=== PATIENT | female | born 1930 | race Caucasian/White ===

== ENCOUNTER 2016-12-14 09:45 | Inpatient (IN) | payer BC ==
[~2016-12-14] VITALS: Ht 162.6 cm; Wt 58.2 kg
[2016-12-14] VITALS (12 sets, daily range): BP systolic 86–149; BP diastolic 52–87; PULSE 46–79; TEMP 98.6–99
[~2016-12-14 09:45] MED LIST: ATROVENT I0.2 MG/1 M IH; CALCIUM 600600 M2 PO; IPRATROPIUM BROM3 M1 IH; LUTEIN6 MG PO; NICODERM C14 MG/PATC TOP; PERFOROMIS20 MCG/2 M IH; PULMICORT R1 MG/2 ML; PULMICORT90 MCG/Act IH; SYNTHROID0.075 MG/T PO; TART CHERRY PO
[2016-12-14 16:53] LABS: HEMATOCRIT 35.6 % (37.0-47.0); HEMOGLOBIN 11.3 g/dl (12.5-16.0); MEAN CELL VOLUME 99 fl (80.0-100.0); MEAN CORPUSCULAR HEMOGLOBIN 31 pg (27.0-31.0); MEAN CORPUSCULAR HGB CONC 32 g/dl (33.0-37.0); MEAN PLATELET VOLUME 9.9 fl (7.4-10.4); PLATELET COUNT 195 K/mm3 (130-400); REDCELL DISTRIBUTION WIDTH-CV 12.5 % (11.5-14.5); WHITE BLOOD COUNT 10.3 K/mm3 (4.8-10.8)
[2016-12-14 19:55] LABS: CALCIUM 9.5 mg/dL (8.4-10.2); CREATININE, serum 1.06 mg/dL (0.52-1.25); MAGNESIUM 2.1 mg/dL (1.6-2.3); PHOSPHOROUS 4.4 mg/dL (2.5-4.5); POTASSIUM 4.5 mmol/L (3.4-5.0)
[2016-12-15 03:30] VITALS: BP 101/57; PULSE 61; TEMP 98.1
[2016-12-15 04:22] LABS: PH 5 (5-8); SQUAMOUS EPITHELIAL 0-2 /hpf; URINE APPEARANCE Hazy; URINE BACTERIA None Seen /hpf; URINE BILIRUBIN Negative (NEGATIVE); URINE BLOOD Negative (NEGATIVE); URINE COLOR Yellow; URINE GLUCOSE Negative (NEGATIVE); URINE KETONE Negative (NEGATIVE); URINE RBC 0-2 /hpf; URINE UROBILINOGEN Negative (NEGATIVE)
[2016-12-15 07:28] VITALS: BP 136/57; PULSE 73; TEMP 98.3
[2016-12-15] MEDS ORDERED: OMNICEF 300MG300 MG PO (10:47)
== END 2016-12-15 11:38 | disposition home or self-care (01) | DRG 200 ==
LOC: COL.RAD 09:45 → MEDICAL 12:49
PROVIDERS: Internal Medicine
PROC: 0W9B00Z Drainage of Left Pleural Cavity with Drainage Device, Open Approach (ICD-10-PCS; principal; 2016-12-14)
PROC: 0BBJ3ZX Excision of Left Lower Lung Lobe, Percutaneous Approach, Diagnostic (ICD-10-PCS; 2016-12-14)
DX: J95.811 Postprocedural pneumothorax (principal); C34.32 Malignant neoplasm of lower lobe, left bronchus or lung; J44.9 Chronic obstructive pulmonary disease, unspecified; E03.9 Hypothyroidism, unspecified; R91.1 Solitary pulmonary nodule; F17.210 Nicotine dependence, cigarettes, uncomplicated
CPT/HCPCS: 99223-AI; 99239; J2270; J7030

== ENCOUNTER 2017-07-16 21:13 | Inpatient (IN) | payer MEDICARE, BC ==
[~2017-07-16] VITALS: Ht 162.6 cm; Wt 52.3 kg
[~2017-07-16 21:13] MED LIST changes: +OMNICEF 300MG300 MG PO; -PULMICORT R1 MG/2 ML; +PULMICORT R1 MG/2 ML IH
[2017-07-16 21:40] LABS: MEAN CELL VOLUME 101 fl (80.0-100.0); MEAN CORPUSCULAR HGB CONC 32 g/dl (33.0-37.0); PLATELET COUNT 233 K/mm3 (130-400); RED BLOOD COUNT 3.45 M/mm3 (4.10-5.30); WHITE BLOOD COUNT 7.6 K/mm3 (4.8-10.8)
[2017-07-16 21:42] LABS: ADD PATHOLOGY DIFF REVIEW NO; HEMATOCRIT 34.8 % (37.0-47.0); MEAN CORPUSCULAR HEMOGLOBIN 32 pg (27.0-31.0)
[2017-07-16 21:43] LABS: ARTERIAL BLD GAS O2 SATURATION 94.2 % (92-100); ARTERIAL BLD GAS TCO2 CT 35.3; ARTERIAL BLOOD GAS BASE EXCESS 5.5 (-2-2); ARTERIAL BLOOD GAS HCO3 33.3 meq/L (22-26); ARTERIAL BLOOD GAS PHT 7.33 C (7.35-7.45); ARTERIAL BLOOD GAS PO2 72.3 mmHg (80-100); ARTERIAL BLOOD GAS PO2T 72.3 (80-100); ARTERIAL BLOOD GAS pH 7.33 (7.35-7.45); OXYHEMOGLOBIN 92.7 %
[2017-07-16 21:44] LABS: ALLEN TEST YES; ALLENS TEST RESULT PASS; ATS? YES
[2017-07-16 21:47] LABS: ADJUSTED CALCIUM 9.2 mg/dL (8.4-10.2); ALANINE AMINOTRANSFERASE 30 U/L (9-52); ALKALINE PHOSPHATASE 65 U/L (50-136); ANION GAP 6 mmol/L (7-16); BILIRUBIN,TOTAL 0.3 mg/dL (0.0-1.0); BLOOD UREA NITROGEN 22 mg/dL (7-17); CALCIUM 9.2 mg/dL (8.4-10.2); CARBON DIOXIDE 36 mmol/L (22-30); CHLORIDE 102 mmol/L (98-107); CREATININE, serum 0.81 mg/dL (0.52-1.25); GLUCOSE 78 mg/dL (74-106); SODIUM 144 mmol/L (137-145); TOTAL PROTEIN 7.1 gm/dL (6.4-8.2)
[2017-07-16 21:49] LABS: BAND 2 % (0-10); BASOPHIL 1 % (0-2); EOSINOPHIL 2 % (0-4); METAMYELOCYTE 1 % (0-0); NEUTROPHILS 67 % (42.0-75.2); TOTAL CELLS COUNTED 100
[2017-07-16 21:50] LABS: ANISOCYTOSIS 1+; BURR CELLS 1+; HYPOCHROMIA 1+; POIKILOCYTOSIS 1+; ROULEAUX 1+
[2017-07-16 21:51] LABS: LYMPHOCYTE 21 % (20.0-51.0)
[2017-07-16 22:53] LABS: B-TYPE NATRIURETIC PEPTIDE 518 pg/mL (0-450); TROPONIN-I < 0.012 ng/mL (0.000-0.034)
[2017-07-17 00:23] VITALS: BP 145/61; PULSE 82; TEMP 98.7
[2017-07-17 04:37] VITALS: BP 116/64; PULSE 75; TEMP 98
[2017-07-17 07:05] LABS: CALCIUM 8.6 mg/dL (8.4-10.2); CREATININE, serum 0.8 mg/dL (0.52-1.25); POTASSIUM 4.9 mmol/L (3.4-5.0)
[2017-07-17 07:51] VITALS: BP 126/64; PULSE 74; TEMP 98
[2017-07-17 08:10] LABS: MEAN CELL VOLUME 102 fl (80.0-100.0); MEAN CORPUSCULAR HGB CONC 31 g/dl (33.0-37.0); MEAN PLATELET VOLUME 8.8 fl (7.4-10.4); PLATELET COUNT 220 K/mm3 (130-400); RED BLOOD COUNT 3.29 M/mm3 (4.10-5.30); WHITE BLOOD COUNT 6.8 K/mm3 (4.8-10.8)
[2017-07-17 08:21] LABS: ADD PATHOLOGY DIFF REVIEW NO; HEMATOCRIT 33.7 % (37.0-47.0); HEMOGLOBIN 10.5 g/dl (12.5-16.0); MEAN CORPUSCULAR HEMOGLOBIN 32 pg (27.0-31.0)
[2017-07-17 09:11] LABS: BAND 17 % (0-10); LYMPHOCYTE 10 % (20.0-51.0); NEUTROPHILS 72 % (42.0-75.2); PLATELET ESTIMATE NORMAL (NORMAL); TOTAL CELLS COUNTED 100
[2017-07-17 11:36] VITALS: BP 132/59; PULSE 82; TEMP 97.8
[2017-07-17 14:13] LABS: MUCOUS Present /lpf; PH 6 (5-8); SQUAMOUS EPITHELIAL 0-2 /hpf; URINE APPEARANCE Clear; URINE BACTERIA None Seen /hpf; URINE BILIRUBIN Negative (NEGATIVE); URINE BLOOD 1+ (NEGATIVE); URINE COLOR Yellow; URINE GLUCOSE Negative (NEGATIVE); URINE KETONE Negative (NEGATIVE); URINE LEUKOCYTE ESTERASE Negative (NEGATIVE); URINE PROTEIN(semi-quant) Negative (NEGATIVE); URINE RBC 0-2 /hpf; URINE UROBILINOGEN Negative (NEGATIVE); URINE WBC 0-2 /hpf
[2017-07-17 14:58] LABS: COLLECTION METHOD CLEAN CATCH
[2017-07-17 15:37] VITALS: BP 127/60; PULSE 72; TEMP 97.7
[2017-07-17 20:39] VITALS: BP 126/62; PULSE 78; TEMP 97
[2017-07-18] VITALS (7 sets, daily range): BP systolic 117–143; BP diastolic 62–67; PULSE 59–77; TEMP 97–98.6
[2017-07-18 05:05] LABS: ARTERIAL BLD GAS O2 SATURATION 96.6 % (92-100); ARTERIAL BLD GAS TCO2 CT 30.7; ARTERIAL BLOOD GAS BASE EXCESS 3.3 (-2-2); ARTERIAL BLOOD GAS HCO3 29.1 meq/L (22-26); ARTERIAL BLOOD GAS PO2 92.8 mmHg (80-100); ARTERIAL BLOOD GAS pH 7.38 (7.35-7.45); OXYHEMOGLOBIN 95.8 %
[2017-07-18 05:07] LABS: ALLEN TEST NO; ATS? YES
[2017-07-18 07:23] LABS: MEAN CELL VOLUME 100 fl (80.0-100.0); MEAN CORPUSCULAR HGB CONC 32 g/dl (33.0-37.0); PLATELET COUNT 246 K/mm3 (130-400); RED BLOOD COUNT 3.38 M/mm3 (4.10-5.30); WHITE BLOOD COUNT 8.9 K/mm3 (4.8-10.8)
[2017-07-18 07:26] LABS: HEMATOCRIT 33.9 % (37.0-47.0); HEMOGLOBIN 10.8 g/dl (12.5-16.0); MEAN CORPUSCULAR HEMOGLOBIN 32 pg (27.0-31.0)
[2017-07-18 07:27] LABS: ADD PATHOLOGY DIFF REVIEW NO
[2017-07-18 08:34] LABS: BAND 6 % (0-10); LYMPHOCYTE 14 % (20.0-51.0); NEUTROPHILS 74 % (42.0-75.2); PLATELET ESTIMATE NORMAL (NORMAL); TOTAL CELLS COUNTED 100
[2017-07-18 22:54] LABS: ARTERIAL BLD GAS O2 SATURATION 96.1 % (92-100); ARTERIAL BLD GAS TCO2 CT 32.2; ARTERIAL BLOOD GAS BASE EXCESS 4.9 (-2-2); ARTERIAL BLOOD GAS HCO3 30.6 meq/L (22-26); ARTERIAL BLOOD GAS PO2 87.7 mmHg (80-100); ARTERIAL BLOOD GAS PO2T 86.6 (80-100); OXYHEMOGLOBIN 95.4 %
[2017-07-18 22:55] LABS: ALLEN TEST YES; ALLENS TEST RESULT PASS; ATS? YES
[2017-07-19 03:30] VITALS: BP 115/69; PULSE 78; TEMP 97.5
[2017-07-19 07:39] VITALS: BP 127/52; PULSE 52; TEMP 97.8
[2017-07-19 12:39] VITALS: BP 120/70; PULSE 80; TEMP 98.4
[2017-07-19 17:53] VITALS: BP 147/71; PULSE 82; TEMP 97.5
[2017-07-19 20:17] VITALS: BP 149/77; PULSE 96; TEMP 99
[2017-07-20 00:48] VITALS: BP 130/83; PULSE 84; TEMP 97.5
[2017-07-20 03:21] VITALS: BP 120/61; PULSE 61; TEMP 98.5
[2017-07-20 07:35] LABS: MEAN CELL VOLUME 102 fl (80.0-100.0); MEAN CORPUSCULAR HGB CONC 31 g/dl (33.0-37.0); MEAN PLATELET VOLUME 9.2 fl (7.4-10.4); PLATELET COUNT 296 K/mm3 (130-400); RED BLOOD COUNT 3.31 M/mm3 (4.10-5.30); WHITE BLOOD COUNT 15.7 K/mm3 (4.8-10.8)
[2017-07-20 07:42] LABS: HEMATOCRIT 33.7 % (37.0-47.0); HEMOGLOBIN 10.4 g/dl (12.5-16.0); MEAN CORPUSCULAR HEMOGLOBIN 31 pg (27.0-31.0)
[2017-07-20 07:46] LABS: CALCIUM 8.4 mg/dL (8.4-10.2); CREATININE, serum 0.88 mg/dL (0.52-1.25)
[2017-07-20 08:34] VITALS: BP 126/59; PULSE 77; TEMP 97.8
[2017-07-20 09:29] LABS: BAND 64 % (0-10); LYMPHOCYTE 5 % (20.0-51.0); NEUTROPHILS 31 % (42.0-75.2); PLATELET ESTIMATE INCREASED (NORMAL); TOTAL CELLS COUNTED 100
[2017-07-20 09:30] LABS: ADD PATHOLOGY DIFF REVIEW YES
[2017-07-20 10:14] LABS: ARTERIAL BLD GAS O2 SATURATION 95.8 % (92-100); ARTERIAL BLOOD GAS BASE EXCESS 3.1 (-2-2); ARTERIAL BLOOD GAS HCO3 29.6 meq/L (22-26); ARTERIAL BLOOD GAS pH 7.35 (7.35-7.45)
[2017-07-20 10:15] LABS: ATS? YES
[2017-07-20 12:26] VITALS: BP 143/70; PULSE 77; TEMP 97.9
[2017-07-20 16:04] VITALS: BP 146/62; PULSE 76; TEMP 97.9
[2017-07-20 20:21] VITALS: BP 145/64; PULSE 94; TEMP 98.1
[2017-07-21 00:22] VITALS: BP 114/57; PULSE 73; TEMP 96.7
[2017-07-21 03:24] VITALS: BP 102/43; PULSE 65; TEMP 96.3
[2017-07-21 08:21] VITALS: BP 134/66; PULSE 73; TEMP 97.8
[2017-07-21 12:02] VITALS: BP 135/58; PULSE 78; TEMP 98.6
[2017-07-21 15:57] VITALS: BP 142/70; PULSE 96; TEMP 97.9
[2017-07-21 19:40] VITALS: BP 144/66; PULSE 100; TEMP 97.7
[2017-07-22 00:58] VITALS: BP 123/55; PULSE 87; TEMP 97.2
[2017-07-22 03:21] VITALS: BP 110/55; PULSE 89; TEMP 97.5
[2017-07-22 07:37] VITALS: BP 122/57; PULSE 72; TEMP 97.9
[2017-07-22 08:11] LABS: PATHOLOGY DIFF REVIEW OK
[2017-07-22] MEDS ORDERED: XANAX .25M0.25 MG/TA PO (09:50)
[2017-07-22] MEDS ORDERED: NICODERM C14 MG/PATC TD (09:50)
[2017-07-22] MEDS ORDERED: PREDNISONE10 MG PO (09:54)
[2017-07-22 11:12] VITALS: BP 127/57; PULSE 86; TEMP 97.9
[2017-07-22 11:12] LABS: ADD PATHOLOGY DIFF REVIEW NO; HEMOGLOBIN 10.7 g/dl (12.5-16.0); MEAN CELL VOLUME 101 fl (80.0-100.0); MEAN CORPUSCULAR HEMOGLOBIN 32 pg (27.0-31.0); MEAN CORPUSCULAR HGB CONC 32 g/dl (33.0-37.0); MEAN PLATELET VOLUME 8.9 fl (7.4-10.4); PLATELET COUNT 384 K/mm3 (130-400); RED BLOOD COUNT 3.37 M/mm3 (4.10-5.30); WHITE BLOOD COUNT 15.1 K/mm3 (4.8-10.8)
[2017-07-22 11:53] LABS: BAND 4 % (0-10); LYMPHOCYTE 22 % (20.0-51.0); NEUTROPHILS 70 % (42.0-75.2); TOTAL CELLS COUNTED 100
[2017-07-22 11:54] LABS: PLATELET ESTIMATE NORMAL (NORMAL)
[2017-07-22 14:45] VITALS: BP 127/57; PULSE 86; TEMP 97.9
== END 2017-07-22 15:57 | DRG 189 ==
LOC: COL.ER 21:13 → MEDICAL 22:25
PROVIDERS: Emergency Medicine; Internal Medicine; Internal Medicine Pulmonary Disease; Nurse Practitioner; Nurse Practitioner Family; Physician Assistant
DX: J96.21 Acute and chronic respiratory failure with hypoxia (principal); J44.1 Chronic obstructive pulmonary disease with (acute) exacerbation; E44.0 Moderate protein-calorie malnutrition; Z68.1 Body mass index [BMI] 19.9 or less, adult; J96.22 Acute and chronic respiratory failure with hypercapnia; E86.0 Dehydration; F17.210 Nicotine dependence, cigarettes, uncomplicated; Z85.110 Personal history of malignant carcinoid tumor of bronchus and lung; D64.9 Anemia, unspecified
CPT/HCPCS: 99223-AI; 99231-AI; 99232-AI; 99239; G0378; G8978-GP; G8979-GP; G8987-GO; G8988-GO; J0696; J1650; J1956; J2930; J7030; J7512; Q9967

== ENCOUNTER → 2017-08-05 | Outpatient (CLI) | payer MEDICARE, BC ==
[~2017-08-05] MED LIST changes: +NICODERM C14 MG/PATC TD; +PREDNISONE10 MG PO; +XANAX .25M0.25 MG/TA PO
[2017-08-05 10:21] LABS: ALLEN TEST YES; ALLENS TEST RESULT PASS; ARTERIAL BLD GAS O2 SATURATION 96.3 % (92-100); ARTERIAL BLD GAS TCO2 CT 32.2; ARTERIAL BLOOD GAS BASE EXCESS 4.1 (-2-2); ARTERIAL BLOOD GAS HCO3 30.5 meq/L (22-26); ARTERIAL BLOOD GAS PHT 7.36 C (7.35-7.45); ARTERIAL BLOOD GAS PO2 90.6 mmHg (80-100); ARTERIAL BLOOD GAS PO2T 90.6 (80-100); ARTERIAL BLOOD GAS pH 7.36 (7.35-7.45); ATS? YES; OXYHEMOGLOBIN 95.4 %
== END ==
LOC: COL.PUL 10:00
DX: J44.1 Chronic obstructive pulmonary disease with (acute) exacerbation (principal)

== ENCOUNTER 2017-08-09 14:56 | Inpatient (IN) | payer BC ==
[~2017-08-09] VITALS: Ht 162.6 cm; Wt 53.4 kg
[2017-08-09 15:50] LABS: BASO % 0.7 % (0.0-2.0); EOS % 0.9 % (0-4.0); GRAN # 3.9 (1.4-6.5); GRAN % 86.7 % (42.2-75.2); LYMPH # 0.1 (1.2-3.4); LYMPH % 2.5 % (20.0-51.0); MEAN CELL VOLUME 100 fl (80.0-100.0); MEAN CORPUSCULAR HGB CONC 32 g/dl (33.0-37.0); MEAN PLATELET VOLUME 9.7 fl (7.4-10.4); MONO # 0.4 (0.1-0.6); MONO % 8.5 % (1.7-9.3); PLATELET COUNT 141 K/mm3 (130-400); RED BLOOD COUNT 3.08 M/mm3 (4.10-5.30); WHITE BLOOD COUNT 4.5 K/mm3 (4.8-10.8)
[2017-08-09 15:51] LABS: HEMATOCRIT 30.7 % (37.0-47.0); HEMOGLOBIN 9.9 g/dl (12.5-16.0); MEAN CORPUSCULAR HEMOGLOBIN 32 pg (27.0-31.0)
[2017-08-09 16:00] LABS: ALBUMIN 3.9 gm/dL (3.5-5.0); BILIRUBIN,TOTAL 0.5 mg/dL (0.0-1.0); CALCIUM 8.9 mg/dL (8.4-10.2); CREATININE, serum 1.01 mg/dL (0.52-1.25); POTASSIUM 4.1 mmol/L (3.4-5.0); TOTAL PROTEIN 6.5 gm/dL (6.4-8.2)
[2017-08-09 16:01] LABS: INFLUENZA A NEGATIVE; INFLUENZA B NEGATIVE
[2017-08-09 17:03] LABS: ARTERIAL BLD GAS O2 SATURATION 94.1 % (92-100); ARTERIAL BLD GAS TCO2 CT 26.6; ARTERIAL BLOOD GAS BASE EXCESS -0.1 (-2-2); ARTERIAL BLOOD GAS HCO3 25.3 meq/L (22-26); ARTERIAL BLOOD GAS PO2 77.6 mmHg (80-100); ARTERIAL BLOOD GAS pH 7.38 (7.35-7.45); OXYHEMOGLOBIN 93.4 %
[2017-08-09 17:05] LABS: ALLEN TEST YES; ALLENS TEST RESULT PASS; ATS? YES
[2017-08-09 17:37] LABS: COLLECTION METHOD CLEAN CATCH
[2017-08-09 17:44] LABS: PH 5 (5-8); SQUAMOUS EPITHELIAL 0-2 /hpf; URINE APPEARANCE Clear; URINE BACTERIA None Seen /hpf; URINE BILIRUBIN Negative (NEGATIVE); URINE BLOOD Negative (NEGATIVE); URINE COLOR Yellow; URINE GLUCOSE Negative (NEGATIVE); URINE KETONE Negative (NEGATIVE); URINE LEUKOCYTE ESTERASE Negative (NEGATIVE); URINE PROTEIN(semi-quant) Negative (NEGATIVE); URINE RBC 0-2 /hpf; URINE UROBILINOGEN Negative (NEGATIVE); URINE WBC 0-2 /hpf
[2017-08-09 20:52] VITALS: BP 105/50; PULSE 82; TEMP 98.7
[2017-08-10 00:58] VITALS: BP 107/55; PULSE 74; TEMP 99.2
[2017-08-10 05:57] VITALS: BP 99/54; PULSE 92; TEMP 98.3
[2017-08-10 07:59] VITALS: BP 118/62; PULSE 73; TEMP 98.1
[2017-08-10 11:32] VITALS: BP 111/58; PULSE 82; TEMP 97.6
[2017-08-10 15:52] VITALS: BP 120/61; PULSE 81; TEMP 97.7
[2017-08-10 19:59] VITALS: BP 169/82; PULSE 96; TEMP 98.6
[2017-08-11] VITALS (7 sets, daily range): BP systolic 98–136; BP diastolic 54–62; PULSE 62–74; TEMP 97.6–98.4
[2017-08-12] VITALS: BP 124/57; PULSE 50; TEMP 97.8
[2017-08-12 08:31] LABS: CALCIUM 7.4 mg/dL (8.4-10.2); CREATININE, serum 0.88 mg/dL (0.52-1.25); MAGNESIUM 1.9 mg/dL (1.6-2.3); POTASSIUM 3.7 mmol/L (3.4-5.0)
[2017-08-12 08:34] VITALS: BP 137/63; PULSE 89; TEMP 97.8
[2017-08-12 08:41] LABS: MEAN CELL VOLUME 103 fl (80.0-100.0); MEAN CORPUSCULAR HGB CONC 31 g/dl (33.0-37.0); MEAN PLATELET VOLUME 9.6 fl (7.4-10.4); PLATELET COUNT 152 K/mm3 (130-400); RED BLOOD COUNT 2.98 M/mm3 (4.10-5.30); WHITE BLOOD COUNT 7.8 K/mm3 (4.8-10.8)
[2017-08-12 08:46] LABS: HEMATOCRIT 30.7 % (37.0-47.0); HEMOGLOBIN 9.6 g/dl (12.5-16.0); MEAN CORPUSCULAR HEMOGLOBIN 32 pg (27.0-31.0)
[2017-08-12 08:47] LABS: ADD PATHOLOGY DIFF REVIEW NO
[2017-08-12 09:38] LABS: BAND 24 % (0-10); LYMPHOCYTE 17 % (20.0-51.0); NEUTROPHILS 56 % (42.0-75.2); TOTAL CELLS COUNTED 100
[2017-08-12 09:39] LABS: PLATELET ESTIMATE NORMAL (NORMAL)
[2017-08-12 11:45] VITALS: BP 129/62; PULSE 73; TEMP 97.9
[2017-08-12 16:07] VITALS: BP 142/66; PULSE 72; TEMP 98.6
[2017-08-12 21:00] VITALS: BP 116/55; PULSE 77; TEMP 98
[2017-08-13 00:52] VITALS: BP 135/58; PULSE 75; TEMP 97.7
[2017-08-13 04:23] VITALS: BP 147/72; PULSE 78; TEMP 97.6
[2017-08-13 08:14] VITALS: BP 135/64; PULSE 75; TEMP 97.2
[2017-08-13] MEDS ORDERED: IPRATROPIUM BROM3 M1 IH (09:12)
[2017-08-13] MEDS ORDERED: ZITHROMAX500 M2 PO (09:14)
[2017-08-13] MEDS ORDERED: PREDNISONE10 MG PO (09:17)
[2017-08-13] MEDS ORDERED: CLEOCIN HCL300 MG PO (10:25)
[2017-08-13 11:38] VITALS: BP 172/73; PULSE 85; TEMP 97.4
[2017-08-13 12:24] VITALS: BP 172/73; PULSE 85; TEMP 97.4
[2017-08-13 12:37] VITALS: BP 135/76
== END 2017-08-13 13:16 | DRG 871 ==
LOC: COL.ER 14:56 → MEDICAL 17:05
PROVIDERS: Emergency Medicine; Nurse Practitioner Family
DX: A41.9 Sepsis, unspecified organism (principal); J18.9 Pneumonia, unspecified organism; J96.21 Acute and chronic respiratory failure with hypoxia; E87.1 Hypo-osmolality and hyponatremia; J44.1 Chronic obstructive pulmonary disease with (acute) exacerbation; E44.0 Moderate protein-calorie malnutrition; E03.9 Hypothyroidism, unspecified; Z85.118 Personal history of other malignant neoplasm of bronchus and lung; Z68.20 Body mass index [BMI] 20.0-20.9, adult
CPT/HCPCS: 99232-AI; 99239; A9284; G0378; J0456; J1650; J2543; J2930; J3480; J7030; J7050; J7512

== ENCOUNTER 2018-01-11 11:27 | Inpatient (IN) | payer BC ==
[~2018-01-11] VITALS: Ht 162.6 cm; Wt 56.8 kg
[2018-01-11] VITALS (345 sets, daily range): BP systolic 109–134; BP diastolic 53–75; PULSE 84–109; TEMP 97.3–99; O2SAT 88–100
[~2018-01-11 11:27] MED LIST changes: +CLEOCIN HCL300 MG PO; +ZITHROMAX500 M2 PO
[2018-01-11 11:39] LABS: HEMOGLOBIN 10.7 g/dl (12.5-16.0); MEAN CELL VOLUME 96 fl (80.0-100.0); MEAN CORPUSCULAR HEMOGLOBIN 31 pg (27.0-31.0); MEAN CORPUSCULAR HGB CONC 32 g/dl (33.0-37.0); MEAN PLATELET VOLUME 8.8 fl (7.4-10.4); PLATELET COUNT 390 K/mm3 (130-400); REDCELL DISTRIBUTION WIDTH-CV 14.5 % (11.5-14.5)
[2018-01-11 11:40] LABS: HEMATOCRIT 33.6 % (37.0-47.0)
[2018-01-11 11:42] LABS: ARTERIAL BLD GAS O2 SATURATION 94.1 % (92-100); ARTERIAL BLD GAS TCO2 CT 28.9; ARTERIAL BLOOD GAS BASE EXCESS 3.8 (-2-2); ARTERIAL BLOOD GAS HCO3 27.7 meq/L (22-26); ARTERIAL BLOOD GAS PCO2 39.4 mmHg (35-45); ARTERIAL BLOOD GAS pH 7.47 (7.35-7.45)
[2018-01-11 11:49] LABS: ALBUMIN 3.8 gm/dL (3.5-5.0); BILIRUBIN,TOTAL 0.4 mg/dL (0.0-1.0); CALCIUM 10.6 mg/dL (8.4-10.2); CREATININE, serum 1.06 mg/dL (0.52-1.25); POTASSIUM 4.9 mmol/L (3.4-5.0)
[2018-01-11 12:00] LABS: TROPONIN-I 0.016 ng/mL (0.000-0.034)
[2018-01-11 12:25] LABS: INR 1.1 (0.8-3.0); PROTHROMBIN TIME 12.8 SECONDS (9.7-12.8)
[2018-01-11 13:10] LABS: BAND 51 % (0-10); HYPOCHROMIA 2+; LYMPHOCYTE 1 % (20.0-51.0); METAMYELOCYTE 1 % (0-0); NEUTROPHILS 45 % (42.0-75.2); PLATELET ESTIMATE NORMAL (NORMAL)
[2018-01-12] VITALS (314 sets, daily range): BP systolic 103–133; BP diastolic 50–84; PULSE 51–84; TEMP 97–97.8; O2SAT 76–100
[2018-01-12 06:24] LABS: CALCIUM 9.2 mg/dL (8.4-10.2); CREATININE, serum 0.89 mg/dL (0.52-1.25); POTASSIUM 4.2 mmol/L (3.4-5.0)
[2018-01-13 03:58] VITALS: BP 121/61; PULSE 79; TEMP 97.6
[2018-01-13 06:25] LABS: MEAN CELL VOLUME 97 fl (80.0-100.0); MEAN CORPUSCULAR HGB CONC 32 g/dl (33.0-37.0); MEAN PLATELET VOLUME 9.1 fl (7.4-10.4); PLATELET COUNT 337 K/mm3 (130-400); RED BLOOD COUNT 2.86 M/mm3 (4.10-5.30); REDCELL DISTRIBUTION WIDTH-CV 14.1 % (11.5-14.5)
[2018-01-13 06:33] LABS: HEMATOCRIT 27.6 % (37.0-47.0); HEMOGLOBIN 8.7 g/dl (12.5-16.0); MEAN CORPUSCULAR HEMOGLOBIN 30 pg (27.0-31.0)
[2018-01-13 06:41] LABS: CALCIUM 8.4 mg/dL (8.4-10.2); CREATININE, serum 0.9 mg/dL (0.52-1.25); POTASSIUM 4.3 mmol/L (3.4-5.0)
[2018-01-13 07:12] VITALS: BP 135/60; PULSE 68; TEMP 98
[2018-01-13 07:40] LABS: BAND 14 % (0-10); HYPOCHROMIA 2+; LYMPHOCYTE 5 % (20.0-51.0); NEUTROPHILS 81 % (42.0-75.2); OVALOCYTES 1+; PLATELET ESTIMATE NORMAL (NORMAL)
[2018-01-13 11:31] VITALS: BP 115/59; PULSE 86; TEMP 97.4
[2018-01-13 15:57] VITALS: BP 130/61; PULSE 94; TEMP 97.6
[2018-01-13 19:31] VITALS: BP 112/58; PULSE 84; TEMP 97.8
[2018-01-13 23:13] VITALS: BP 133/67; PULSE 76; TEMP 97.7
[2018-01-14 03:51] VITALS: BP 124/88; PULSE 69; TEMP 98.3
[2018-01-14 03:56] VITALS: BP 147/72; PULSE 65; TEMP 97.6
[2018-01-14 07:30] LABS: MEAN CELL VOLUME 96 fl (80.0-100.0); MEAN CORPUSCULAR HGB CONC 32 g/dl (33.0-37.0); PLATELET COUNT 361 K/mm3 (130-400); RED BLOOD COUNT 2.94 M/mm3 (4.10-5.30); REDCELL DISTRIBUTION WIDTH-CV 14.3 % (11.5-14.5)
[2018-01-14 07:39] LABS: CREATININE, serum 0.84 mg/dL (0.52-1.25); HEMATOCRIT 28.3 % (37.0-47.0); MEAN CORPUSCULAR HEMOGLOBIN 31 pg (27.0-31.0)
[2018-01-14 08:11] VITALS: BP 121/56; PULSE 82; TEMP 97.9
[2018-01-14 08:12] LABS: BAND 8 % (0-10); MYELOCYTE 2 % (0-0); NEUTROPHILS 83 % (42.0-75.2); PLATELET ESTIMATE NORMAL (NORMAL)
[2018-01-14 08:13] LABS: LYMPHOCYTE 2 % (20.0-51.0)
[2018-01-14] MEDS ORDERED: OMNICEF 300MG300 MG PO (09:32)
[2018-01-14] MEDS ORDERED: PREDNISONE10 MG PO (09:35)
[2018-01-14 12:04] VITALS: BP 134/84; TEMP 97.9
[2018-01-14 13:09] VITALS: BP 134/84; PULSE 82; TEMP 97.9
== END 2018-01-14 14:48 | DRG 871 ==
LOC: COL.ER 11:27 → ICU 12:12 → MEDICAL 12:12
PROVIDERS: Emergency Medicine; Internal Medicine; Physician Assistant
DX: A41.9 Sepsis, unspecified organism (principal); J18.9 Pneumonia, unspecified organism; J96.21 Acute and chronic respiratory failure with hypoxia; J44.0 Chronic obstructive pulmonary disease with (acute) lower respiratory infection; J44.1 Chronic obstructive pulmonary disease with (acute) exacerbation; Z87.891 Personal history of nicotine dependence; Z85.110 Personal history of malignant carcinoid tumor of bronchus and lung; I48.2 Chronic atrial fibrillation; Z79.01 Long term (current) use of anticoagulants
CPT/HCPCS: 99223-AI; 99232-AI; 99233-AI; 99239; J0456; J0696; J1644; J2543; J2920; J2930; J7030; J7050; J7512

== ENCOUNTER → 2019-08-06 | Outpatient (CLI) | payer BC | LOC: ZCOL.LAB 14:09 | DX: L97.929 Non-pressure chronic ulcer of unspecified part of left lower leg with unspecified severity (principal) ==

== ENCOUNTER 2020-04-19 06:58 | Inpatient (IN) | payer BC ==
[2020-04-19] VITALS (339 sets, daily range): BP systolic 109–132; BP diastolic 77–783; PULSE 78–91; TEMP 97–98.2; O2SAT 80–99
[~2020-04-19] VITALS: Ht 162.6 cm; Wt 69.8 kg
[2020-04-19 07:41] LABS: BASO % 0.7 % (0.0-2.0); EOS # 0.2 (0.0-0.7); EOS % 2.6 % (0-4.0); GRAN # 3.9 (1.4-6.5); GRAN % 67.4 % (42.2-75.2); HEMATOCRIT 32.8 % (37.0-47.0); HEMOGLOBIN 9.7 g/dl (12.5-16.0); LYMPH # 1.1 (1.2-3.4); MEAN CELL VOLUME 103 fl (80.0-100.0); MEAN CORPUSCULAR HEMOGLOBIN 31 pg (27.0-31.0); MEAN CORPUSCULAR HGB CONC 30 g/dl (33.0-37.0); MEAN PLATELET VOLUME 9.3 fl (7.4-10.4); MONO # 0.6 (0.1-0.6); MONO % 10.8 % (1.7-9.3); PLATELET COUNT 198 K/mm3 (130-400); RED BLOOD COUNT 3.18 M/mm3 (4.10-5.30)
[2020-04-19 07:44] LABS: ALANINE AMINOTRANSFERASE 17 U/L (4-34); ALBUMIN 3.9 gm/dL (3.5-5.0); ALKALINE PHOSPHATASE 89 U/L (50-136); AST,SGOT 27 U/L (15-37); BILIRUBIN,TOTAL 0.3 mg/dL (0.0-1.0); BLOOD UREA NITROGEN 22 mg/dL (7-17); CALCIUM 9.5 mg/dL (8.4-10.2); CHLORIDE 97 mmol/L (98-107); CREATININE, serum 0.95 (0.52-1.25); GLUCOSE 93 mg/dL (74-106); POTASSIUM 4.3 mmol/L (3.4-5.0); SODIUM 143 mmol/L (137-145); TOTAL PROTEIN 7.5 gm/dL (6.4-8.2)
[2020-04-19 07:50] LABS: CARBON DIOXIDE 40 mmol/L (22-30)
[2020-04-19 07:51] LABS: ANION GAP 6 mmol/L (7-16)
[2020-04-19 07:57] LABS: TROPONIN-I < 0.012 ng/mL (0.000-0.035)
[2020-04-19 08:02] LABS: ARTERIAL BLD GAS O2 SATURATION 96.2 % (92-100); ARTERIAL BLD GAS TCO2 CT 41.4; ARTERIAL BLOOD GAS BASE EXCESS 9.7 (-2-2); ARTERIAL BLOOD GAS HCO3 38.8 meq/L (22-26); ARTERIAL BLOOD GAS PO2 86.4 mmHg (80-100); ARTERIAL BLOOD GAS pH 7.29 (7.35-7.45)
[2020-04-19 08:03] LABS: ARTERIAL BLOOD GAS PCO2 83.2 mmHg (35-45)
[2020-04-19 14:36] LABS: ARTERIAL BLD GAS O2 SATURATION 94.2 % (92-100); ARTERIAL BLD GAS TCO2 CT 39.9; ARTERIAL BLOOD GAS BASE EXCESS 9.4 (-2-2); ARTERIAL BLOOD GAS HCO3 37.7 meq/L (22-26); ARTERIAL BLOOD GAS PO2 73.2 mmHg (80-100); ARTERIAL BLOOD GAS pH 7.34 (7.35-7.45)
[2020-04-19 14:38] LABS: ARTERIAL BLOOD GAS PCO2 71.4 mmHg (35-45)
--- NOTE | 2020-04-19 19:35 | NUR ---
Patient anxious while on bipap and report from dayshift stating same. Spoke with Sandra FRY. Order added for ativan.
--- NOTE | 2020-04-19 19:58 | NUR ---
Report to oncoming shift. Pt remains on Precedex gtt. Up to BSC several times throughout shift. Strength improving. Using call system appropriately. Continues to require assist x1 with personal cares. Visitor in earlier and provided pt with her personal cell phone. Remains on 2L NC O2 as SPO2 noted to decrease to 85-88 c getting up to commode.
--- NOTE | 2020-04-19 20:41 | NUR ---
Resting in bed. Assessment complete. Lungs dimished with wheezing on inspiration. Heart sounds normal. Bowels active x4. Pulses present throughout. Bilateral lower edema +1 with erythema to shins present. IV right AC infusing without complications. Denies pain. On bipap at this time. Call light in reach.
--- NOTE | 2020-04-19 20:44 | NUR ---
Patient anxious while on bipap and report from dayshift stating same. Spoke with Sandra FRY. Order added for ativan.
[2020-04-20] VITALS (609 sets, daily range): BP systolic 115–146; BP diastolic 64–77; PULSE 62–87; TEMP 97.4–98.3; O2SAT 78–100
--- NOTE | 2020-04-20 00:18 | NUR ---
Resting in bed with bipap on. Denies needs. Denies pain. Call light in reach.
[2020-04-20 06:18] LABS: BASO % 0.2 % (0.0-2.0); GRAN # 5.9 (1.4-6.5); LYMPH # 0.5 (1.2-3.4); MEAN CELL VOLUME 101 fl (80.0-100.0); MEAN CORPUSCULAR HGB CONC 30 g/dl (33.0-37.0); MEAN PLATELET VOLUME 9.5 fl (7.4-10.4); MONO # 0.2 (0.1-0.6); MONO % 2.3 % (1.7-9.3); PLATELET COUNT 186 K/mm3 (130-400); RED BLOOD COUNT 3.09 M/mm3 (4.10-5.30); REDCELL DISTRIBUTION WIDTH-CV 14.1 % (11.5-14.5)
[2020-04-20 06:21] LABS: HEMATOCRIT 31.3 % (37.0-47.0); HEMOGLOBIN 9.5 g/dl (12.5-16.0); MEAN CORPUSCULAR HEMOGLOBIN 31 pg (27.0-31.0)
[2020-04-20 06:33] LABS: CALCIUM 8.8 mg/dL (8.4-10.2); CREATININE, serum 0.94 (0.52-1.25)
--- NOTE | 2020-04-20 06:51 | NUR ---
Patient up to bedside commode and returned to bed. Patient was taking off bipap and placed on 5 liters nasal cannula while using restroom. Oxygen saturations where 89-91%. Patient placed back on bipap once returning to bed. Saturations increased to 96%. Patient on 45%. Patient did receive x1 dose of ativan of anxiety with bipap earlier in evening. Otherwise patient had an uneventful night. Wore bipap throughout night. Resting in bed this AM. Call light in reach.
--- NOTE | 2020-04-20 07:29 | NUR ---
Report given to JIMMIE Mcginnis
--- NOTE | 2020-04-20 11:40 | NUR ---
Optical Technician met with the patient to complete initial intake. The patient lives at [facility] in [place]. The patient has a walker, wheelchair, shower chair, and uses 4L of oxygen. The patient receives assistance with ADLs from staff. The patient's PCP is Dr. Ham and patient receives medications from [facility]. The patient does not have advanced directives in the EMR but states they are complete and designate her daughter, Bella. The patient plans to return to [facility] at discharge. JANY attempted to contact the patient's daughter to disuss discharge plan. She did not answer. JANY faxed updates to Petra at [facility] ([place], [place]) Ph# [phone]. F# [phone]. Will continue to monitor.
[2020-04-20 18:14] LABS: FOLATE (FOLIC ACID) >20.0 ng/mL (7.0-31.4)
[2020-04-20] MEDS ORDERED: XANAX .25M0.25 MG/TA PO (18:37)
[2020-04-20] MEDS ORDERED: ZITHROMAX 250M250 MG PO (18:39)
[2020-04-20] MEDS ORDERED: ZYRTEC 10MG10 MG PO (18:45)
--- NOTE | 2020-04-20 20:00 | NUR ---
VERY ENERGETIC PATIENT WITH A PRODUCTIVE COUGH, O2 SATS DROP RAPIDLY WITH MOVEMENT AND REGAIN SLOWLY WITH RECOVERY, IS A FAST TALKER DENIES DISCOMFORT AT THIS TIME
[2020-04-21] VITALS (312 sets, daily range): BP systolic 95–124; BP diastolic 49–72; PULSE 53–73; TEMP 96.4–98.9; O2SAT 72–100
[2020-04-21 05:32] LABS: MEAN CELL VOLUME 103 fl (80.0-100.0); MEAN CORPUSCULAR HGB CONC 30 g/dl (33.0-37.0); MEAN PLATELET VOLUME 9.4 fl (7.4-10.4); PLATELET COUNT 202 K/mm3 (130-400); RED BLOOD COUNT 2.87 M/mm3 (4.10-5.30); REDCELL DISTRIBUTION WIDTH-CV 13.9 % (11.5-14.5)
[2020-04-21 05:34] LABS: HEMATOCRIT 29.6 % (37.0-47.0); HEMOGLOBIN 8.8 g/dl (12.5-16.0); MEAN CORPUSCULAR HEMOGLOBIN 31 pg (27.0-31.0)
[2020-04-21 05:43] LABS: CALCIUM 8.2 mg/dL (8.4-10.2); CREATININE, serum 0.87 (0.52-1.25); POTASSIUM 4.8 mmol/L (3.4-5.0)
[2020-04-21 05:49] LABS: BAND 10 % (0-10); LYMPHOCYTE 1 % (20.0-51.0); NEUTROPHILS 89 % (42.0-75.2); PLATELET ESTIMATE NORMAL (NORMAL)
--- NOTE | 2020-04-21 09:09 | NUR ---
Initial visit; Patient thanked Purchasing Engineer for looking in on her and offering comfort and prayer.
[2020-04-21] MEDS ORDERED: THERA1 TAB PO (09:21)
[2020-04-21] MEDS ORDERED: XOPENEX 0.0.63 MG/3 IH (09:22)
[2020-04-21] MEDS ORDERED: [UNRECOGNIZED DRUG - OTHER] PO (10:39)
--- NOTE | 2020-04-21 13:23 | NUR ---
Gave report to JIMMIE Farley. PAtient will be going to room 357. Will call family to notify.
--- NOTE | 2020-04-21 14:15 | NUR ---
Pt arrives to medical unit rm 357 from ICU via WC, awake and alert. O2 increased to 7 L/min via NC d/t increased activity. Pt requesting cough drops, denies any other needs. IVF's infusing per orders through right forearm site without s/s of complications. Call light in reach.
--- NOTE | 2020-04-21 19:25 | NUR ---
Up to bedside commode and returned to bed. Assessment complete. Lungs diminshed and coarse. Heart sounds normal. Bowels active x4. Patient having diarrhea. Pulses present throughout. Bilateral lower extremity edema +1. Denies pain. IV right forearm infusing without complications. Denies other needs at this time. Call light in reach.
--- NOTE | 2020-04-21 20:06 | NUR ---
Patient has had x3 episodes of loose stool since start of shift. Spoke with Dr. Grimm. Orders added for GI panel and immodium added. Denies other needs at this time.
--- NOTE | 2020-04-22 00:27 | NUR ---
Resting in bed. Denies needs. Call light in reach.
--- NOTE | 2020-04-22 01:58 | NUR ---
Resting in bed asleep. Call light in reach.
[2020-04-22 03:08] VITALS: BP 114/45; PULSE 54; TEMP 98
--- NOTE | 2020-04-22 04:00 | NUR ---
Resting in bed. Denies needs. Call light in reach.
--- NOTE | 2020-04-22 06:05 | NUR ---
Patient had loose stools at beginning of shift. Immodium ordered but no more stools after order obtained. Otherwise uneventful night. Resting in bed this AM. Call light in reach.
--- NOTE | 2020-04-22 07:05 | NUR ---
Report given to JIMMIE Meehan
[2020-04-22 07:48] LABS: MEAN CELL VOLUME 105 fl (80.0-100.0); MEAN CORPUSCULAR HGB CONC 30 g/dl (33.0-37.0); MEAN PLATELET VOLUME 9.5 fl (7.4-10.4); PLATELET COUNT 215 K/mm3 (130-400); RED BLOOD COUNT 2.85 M/mm3 (4.10-5.30); REDCELL DISTRIBUTION WIDTH-CV 14.1 % (11.5-14.5)
[2020-04-22 07:49] LABS: HEMATOCRIT 29.8 % (37.0-47.0); MEAN CORPUSCULAR HEMOGLOBIN 32 pg (27.0-31.0)
[2020-04-22 07:52] VITALS: BP 130/64; PULSE 58; TEMP 98
[2020-04-22 07:59] LABS: CALCIUM 8.3 mg/dL (8.4-10.2); CREATININE, serum 0.88 (0.52-1.25); POTASSIUM 5.3 mmol/L (3.4-5.0)
[2020-04-22 08:40] LABS: BAND 11 % (0-10); LYMPHOCYTE 2 % (20.0-51.0); METAMYELOCYTE 1 % (0-0); NEUTROPHILS 84 % (42.0-75.2); PLATELET ESTIMATE NORMAL (NORMAL)
--- NOTE | 2020-04-22 10:00 | NUR ---
Assessment completed, alert/oriented, vital signs stable, denies pain or discomfort, lungs are still diminished with wheezing noted, discussed plan of care with hospitlaist, IV steroids decreased but will keep her in the hospital another night, I have spoke with family and updated on POC
[2020-04-22 12:26] VITALS: BP 133/56; PULSE 86; TEMP 97.1
[2020-04-22] MEDS ORDERED: LUBRICANT EYE DROPS OP (14:50)
[2020-04-22] MEDS ORDERED: [UNRECOGNIZED DRUG - OTHER] PO (14:51)
--- NOTE | 2020-04-22 15:39 | NUR ---
JAYN met with the patient and her daughter, Bella, to review discharge plan and to discuss PT's recommendation of back to [place], if able to. JANY discussed post-acute rehab before going to back to [place]. The patient and her daughter report that they prefer to return back to [facility] and would be interested in home health services. JAYN provided the patient and Bella with [employer]'s list of home health agencies that serve [place]. The patient and Bella chose [facility] out of [place]. JANY contacted and faxed a referral to Kasia at [facility]. JANY contacted and faxed updates to Bella at [facility]. Bella reports that they are able to accept the patient back and would be able to take her back on Saturday or Saturday. Saturday would not work. JANY notified the hospitalist of this. JANY updated the patient and her daughter, Bella. Bella plans to transport the patient back to [facility]. JANY to continue to follow.
--- NOTE | 2020-04-22 16:04 | NUR ---
Kasia, at [facility], reports that they are able to accept the patient for services.
[2020-04-22 16:31] VITALS: BP 128/50; PULSE 74; TEMP 97.8
[2020-04-22 19:25] VITALS: BP 140/99; PULSE 78; TEMP 98
--- NOTE | 2020-04-22 20:00 | NUR ---
Received report from JIMMIE Meehan. Sitting in recliner monse eating dinner during shift change report. A/Ox4. Denies any pain or SOB at this time, on 4LO2NC. Meds administered as ordered. INT to RW intact, flushed, dressing CDI. Tele monitor in place. Needs met at this time. call light within reach.
--- NOTE | 2020-04-22 22:00 | NUR ---
Bipap in place.
[2020-04-23] VITALS: BP 118/56; PULSE 52; TEMP 98.2
--- NOTE | 2020-04-23 02:43 | NUR ---
Pt asleep at this time wi bipap in place. Call light within reach. Meds adminsitered
[2020-04-23 04:00] VITALS: BP 115/48; PULSE 56; TEMP 97.3
--- NOTE | 2020-04-23 04:28 | NUR ---
Pt off bipap at this time. RT notified. Pt placed on 4LO2NC
--- NOTE | 2020-04-23 06:34 | NUR ---
Pt slept through the night. Meds administered. SBA to BSC. Needs met. Call light within reach.
--- NOTE | 2020-04-23 07:18 | NUR ---
Report given to JIMMIE Franz.
[2020-04-23 07:39] VITALS: BP 156/84; PULSE 91; TEMP 97.5
[2020-04-23 07:50] LABS: MEAN CELL VOLUME 104 fl (80.0-100.0); MEAN CORPUSCULAR HGB CONC 31 g/dl (33.0-37.0); MEAN PLATELET VOLUME 9.5 fl (7.4-10.4); PLATELET COUNT 233 K/mm3 (130-400); RED BLOOD COUNT 3.04 M/mm3 (4.10-5.30); REDCELL DISTRIBUTION WIDTH-CV 14.1 % (11.5-14.5)
[2020-04-23 07:56] LABS: HEMATOCRIT 31.5 % (37.0-47.0); HEMOGLOBIN 9.6 g/dl (12.5-16.0); MEAN CORPUSCULAR HEMOGLOBIN 32 pg (27.0-31.0)
[2020-04-23 08:12] LABS: CALCIUM 9.1 mg/dL (8.4-10.2); CREATININE, serum 0.84 (0.52-1.25); POTASSIUM 5.1 mmol/L (3.4-5.0)
[2020-04-23 08:57] LABS: LYMPHOCYTE 4 % (20.0-51.0); NEUTROPHILS 93 % (42.0-75.2)
[2020-04-23 11:49] LABS: ARTERIAL BLD GAS O2 SATURATION 91.7 % (92-100); ARTERIAL BLD GAS TCO2 CT 29.9; ARTERIAL BLOOD GAS BASE EXCESS -0.2 (-2-2); ARTERIAL BLOOD GAS PO2 64.6 mmHg (80-100); ARTERIAL BLOOD GAS pH 7.27 (7.35-7.45)
[2020-04-23 12:13] VITALS: BP 132/77; PULSE 65; TEMP 97.6
--- NOTE | 2020-04-23 14:01 | NUR ---
JANY Update: Patient reports that she is interested in hospice. JANY facilitated change in statues. Spoke with Petra at [facility] [place]. Petra reports that the patient must undergo an evaluation prior to being accepted into hospice care. Petra will visit on Saturday to complete evaluation. JANY attempted several calls to DTCorky Blanco at [phone] to notify her of the changes. JANY was unsucessful. Petra reports that they use [facility] from [place]. New Plan: Have evaluation to assess appropriateness to hospice 04/25/2020 [facility] Petra Director
[2020-04-23 17:09] VITALS: BP 146/76; PULSE 87; TEMP 97.7
--- NOTE | 2020-04-23 17:38 | NUR ---
Patient is alert and oriented. denies any pain . ambulate to the beside commode with one person assist. patient transitioning to comfort care per patient and family request. All labs and radiology test has been discontinued. patient complained of difficulty breathing, arterial blood gas show Hypercapnea. patient saturation at 89% on 4L, RN increased to 4.5L/HR at 92%.
[2020-04-23 20:26] VITALS: BP 140/57; PULSE 93; TEMP 97.6
--- NOTE | 2020-04-23 21:57 | NUR ---
Received report from JIMMIE Franz. Pt sitting up on side of bed eating dinner. Pt on comfort care. Tele monitor dc'd. Made pt comfortable in bed. Needs attended too. Pain med adminsitered to pt as requested. INT to RW intact, flushed, dressing CDI. Call light within reach.
--- NOTE | 2020-04-23 22:26 | NUR ---
Pt placed on bipap by RT.
--- NOTE | 2020-04-24 04:10 | NUR ---
Pt requested to be off bipap at this time. RT notified.
--- NOTE | 2020-04-24 07:20 | NUR ---
BEDSIDE REPORT GIVEN. PT AWAKE AND LYING IN BED. REPORTS MILD PAIN. BREAKFAST ORDERED. ON NASAL CANULA
--- NOTE | 2020-04-24 07:25 | NUR ---
Report given to JIMMIE Land.
[2020-04-24 07:52] VITALS: BP 141/62; PULSE 95; TEMP 97.4
--- NOTE | 2020-04-24 09:51 | NUR ---
MORNING MEDS GIVEN. PT AOX4. REMAINS ON 4.5L HI KEILA NC. MODERATE SHORTNESS OF BREATH AT REST INCREASED WITH ACTIVITY. NON PITTING GENERALIZED EDEMA TO INNER ELBOWS AND LOWER EXTREMITIES. PLEASANT AND REPEATEDLY STATES HOW SHE IS READ[facility] AND CANT KEEP LIVING LIKE THIS". DENIES SUICIDAL IDEATION. TOLERATING PO. ASSISTED TO BSC MOD 1 WITH CLEAR YELLOW URINE. REPORTS BM YESTERDAY 04/23.
[2020-04-24 11:39] VITALS: BP 123/61; PULSE 71; TEMP 97.5
--- NOTE | 2020-04-24 17:33 | NUR ---
PT REPORTING RESTLESSNESS AND MODERATE ANXIETY. SCHEDULED XANAX TONIGHT. MILD TO MOD SOB AT REST BEFORE. REPORTS ROXANOL HAS HELPED CALM HER DOWN. GIVEN PER OCT. CONSTANTLY REQUESTING STAFF TO VISIT WITH HER FOR EXTENDED PERIODS OF TIME. WILL CONT TO MONITOR.
--- NOTE | 2020-04-25 01:22 | NUR ---
Pt sleeping upon entry, easily awakened. Pt states she needs something but unable to say exactly what she needs. States having neck pain, prn pain meds and scheduled xanax administered. HOB elevated, on 4.5lO2NC. Made pt comfortable in bed, needs attended too. Call light within reach, bed alarm set.
--- NOTE | 2020-04-25 06:06 | NUR ---
Pt slept through the night. PRN pain med administeres x2. 1-2+ assist to BSC with use of walker, incontinent of urine. Needs met. Call light within reach.
--- NOTE | 2020-04-25 06:53 | NUR ---
Report given to JIMMIE Land
--- NOTE | 2020-04-25 08:54 | NUR ---
LOREE NOTE: PT ASLEEP DURING BEDSIDE REPORT. MORNING MEDS PASSED AND PT VERY ANXIOUS THIS AM. DENIES PAIN. REPEATEDLY STATES "LORD HELP ME I CANT DO TTHIS ANYMORE". REMAINS ON COMFORT CARE. GIVEN HALF DOSE ATIVAN TO HELP RELAX. ALERT AND ORIENTED X3. LUNG SOUNDS DIMINISHED WITH FINE CRACKLES THROUGHOUT. ASSISTED WITH BREAKFAST. TOLERATED MORNING MEDS.
--- NOTE | 2020-04-25 09:36 | NUR ---
Biodiesel Process Control Technician attended clinical rounds with the team. The patient is on comfort measures. Petra Rivera and Bella Nunes from [facility] will be visit with the patient at approximately 10:15 am this day. JANY obtained permission from manager house for this visit. JANY faxed updates. Will continue to monitor.
--- NOTE | 2020-04-25 11:27 | NUR ---
Petra and Bella from [facility] visited with the patient. They report they could not meet her needs at [facility] and were going to recommend the [facility] to the family. The patient's daughter, Bella #[phone] contacted this SW. She is agreeable to sending the referral to [facility]. JANY faxed referral. JANY contacted [place] with [facility]. She reports she does not have availablity this day. Possible tomorrow, 04/26. Will continue to monitor.
--- NOTE | 2020-04-25 16:23 | NUR ---
PT VERY SLEEPY THIS SHIFT. ATE <50% BREAKFAST AND REFUSED LUNCH. DAUGHTER AT BEDSIDE SINCE AFTERNOON. DR SAHU NOTIFIED OF POSSIBLE ATIVAN PARTICIPATION IN LETHARGY WITH 0.5MG ADMINISTERED. DOC STATES WILL RE-ASSESS ORDERS. PT SLEPT ALL DAY BUT WAS AROUSABLE. HARD OF HEARING. TOILETED TWICE WITH INCONTINENCE X1. 2 ASSIST WITH REPEATED DIRECTION TO BEDSIDE COMMODE. PT CONTINUES TO STATE SHE "CANNOT DO THIS ANYMORE". DISCHARGE PLANNING ONGOING. REMAINS IN COMFORT MEASURES.
--- NOTE | 2020-04-25 21:00 | NUR ---
Pt laying in bed repeatedly saying "help me help me." Acknowledged pt and asked pt what she needs help with. Attended to pt's needs at this time but continues to voice "help me help me." states in pain, prn pain meds given and ativan given for anxiety and agitation. Made pt comfortable in bed. Pt granddaughter, Jacki, called requesting to visit pt tonight as she is worried that she may pass tonight alone. Contacted Elana and informed of situation. Elana informed this RN to follow current visitor policy, however, if pt status changed overnight ok for grandftr to visit. Called granddtr and informed of visitor policy, she understands.
--- NOTE | 2020-04-26 02:26 | NUR ---
Pt sleeping at this time. Bed alarm set. Will monitor pt.
--- NOTE | 2020-04-26 02:40 | NUR ---
Pt woke up anxious and agitated. Pt continually removing gown and O2. PRN ativan and jin given. Made pt comfortable. Bed alarm set. WIll monitor.
--- NOTE | 2020-04-26 06:52 | NUR ---
Report given to JIMMIE Winston.
--- NOTE | 2020-04-26 09:16 | NUR ---
Denver from the [facility] reports they do not have availability today. She offered to start hospice at the patient's assisted living facility and possible transfer to the [facility] once it becomes available. Washing Machine Loader contacted Petra with [facility] to provide this update. Petra is to talk to her team then inform SW of their decision. Will continue to monitor.
--- NOTE | 2020-04-26 10:08 | NUR ---
Public Relations met with the patient's daughter, Bella to discuss options. JANY informed Bella that [facility] will review the patient returning there with hospice services. Bella and the family would like to send a referral to [facility] in [place]. JANY faxed referral and contacted Jocelyn. Their team will look at the referral then inform JANY.
[2020-04-26 10:52] VITALS: BP 139/45; PULSE 92
--- NOTE | 2020-04-26 11:34 | NUR ---
Pt assessment completed. Pt laying in bed. Medications not administered, pt was sleeping and difficult to arouse at the time. Pt checked on around 1115, arousable, speech jumbled, difficult to understand, conversation not clear, pt disoriented to time, place, situation. RFA INT IV flushes w/o difficulty. Pt assisted to bedside commode w/ gait belt and two assist, unsteady gait, pt [place], slowly follows some commands. pt voided no difficulty. Assisted back to bed. Pt on 4.5L NC at time of entry, needed to be bumped up to 9L NC to get sats up to 88. Pt back down to 5L NC when back to bed. Awaiting [facility] transfer plans. No further needs at this time. Call light within reach, daughter at bedside.
--- NOTE | 2020-04-26 12:11 | NUR ---
The patient's daughter, Bella informed JANY that she would like to make [facility] the first choice. JANY contacted Jocelyn with [facility] to provide this update. Will continue to follow.
--- NOTE | 2020-04-26 13:25 | NUR ---
Jocelyn with [facility] reports they can accept the patient on 04/27. JANY met with the patient's daughter, Bella to present Medicare.[employer]'s list of hospice providers. [facility] was chosen. JANY faxed referral. The POC at [facility] is Tava # [phone]. JANY informed the team. Will continue to monitor.
--- NOTE | 2020-04-26 14:02 | NUR ---
Jocelyn from [facility] reports that they are awaiting Dr. Ham to approve to follow but wanted to set up transportation for in-between 10:00 and 11:00 on 04/27. JANY contacted [facility] and they will be here at 10:00 am on 04/27. JANY provided an update for the patient's daughter. She was in agreeance. JANY presented the IM form to the patient's daughter. She understood and signed the form. A copy was provided to the patient. Original placed in the chart. There are no additional needs at this time.
--- NOTE | 2020-04-26 18:44 | NUR ---
Pt assisted to bedside commode kerri/ Tami and JIMMIE Mcallister. Pt has been sleepy most of day. Pt repositioned throughout day, lip moisturizer applied. No further needs at this time.
--- NOTE | 2020-04-26 20:30 | NUR ---
Initial shift assessment done- calling out- wanting to go to sleep- mumbling, restless, wanting to sit up-- o2 at 10L per high flow , sats 80,s,, will reposition up in bed, xanax given as ordered to help her relax-- respiratory here to change humidity to oxygen. Respiration 18-20minute. Repositioned--seems more comfortable. On Comfort CARE.
--- NOTE | 2020-04-26 23:16 | NUR ---
pt has been resting quietly past couple hours- resp16/minute
--- NOTE | 2020-04-27 00:30 | NUR ---
Awake- very restless,,trying to take off oxygen, swinging legs over bed- o2 remains at 10L/high flow for comfort- sats 75-80%comfort care- will give Roxanol at this time.
--- NOTE | 2020-04-27 01:00 | NUR ---
Still restless- given Ativan as ordered--taking off all her clothes-- stayed with patient while she is calmimg down. States now she is cold-- warm blankets wrapped around her and patient now is relaxing- respirations 18-20/min
--- NOTE | 2020-04-27 04:13 | NUR ---
Awake, calling out-states shes cold- warm blanket given- restless, Roxanol given at this time, o2 sat 92% at this time at 10L high flow
--- NOTE | 2020-04-27 05:00 | NUR ---
Up to BS with assist - did void 200cc natalie urine, back to bed--bed alarm on
--- NOTE | 2020-04-27 06:30 | NUR ---
Roxanol given for restlessness at 0545-trying to get out of bed-- yelling help me! help me! Ativan tab given at 0630,,
--- NOTE | 2020-04-27 08:00 | NUR ---
Patient is very uncomfortable and restless this morning, breathing very labored, she is on comfort cares only and is to be transerred to hospice later this morning, I have given her 20mg of Roxanol and this has kicked in and she is now resting more comfortably and breathing is less labored, i have spoke with family on the phone to discuss patient plan of care
[2020-04-27] MEDS ORDERED: ROXANOL 20MG20 MG/ML SL (08:48)
[2020-04-27] MEDS ORDERED: ATIVAN 0.50.5 MG/TAB PO (08:49)
--- NOTE | 2020-04-27 09:28 | NUR ---
The patient is to discharge today, 04/27 to [facility] with [facility]. JANY faxed discharge orders to Jocelyn at [facility] and to Jaskaran at [facility]. [facility] will transport at 1000. There are no additional needs at this time.
--- NOTE | 2020-04-27 09:52 | NUR ---
Patient is being discharge to [facility] with [facility], I have attempted to call and give a report to recieving nursing staff, [facility] and is leaving the hospital at this time, I ahve notified family of her departure time
== END 2020-04-27 10:04 | disposition hospice, inpatient (51) | DRG 189 ==
LOC: COL.ER 06:58 → ICU 09:22 → MEDICAL 04-21 13:39
PROVIDERS: Emergency Medicine; Physician Assistant; ADMIT Hospitalist
PROC: 5A09357 Assistance with Respiratory Ventilation, Less than 24 Consecutive Hours, Continuous Positive Airway Pressure (ICD-10-PCS; principal; 2020-04-19)
DX: J96.21 Acute and chronic respiratory failure with hypoxia (principal); J44.1 Chronic obstructive pulmonary disease with (acute) exacerbation; E87.2 Acidosis; J96.22 Acute and chronic respiratory failure with hypercapnia; E03.9 Hypothyroidism, unspecified; J06.9 Acute upper respiratory infection, unspecified; Z20.828 Contact with and (suspected) exposure to other viral communicable diseases; D50.9 Iron deficiency anemia, unspecified; B34.8 Other viral infections of unspecified site; Z66 Do not resuscitate; H40.9 Unspecified glaucoma; F41.9 Anxiety disorder, unspecified; Z87.891 Personal history of nicotine dependence
CPT/HCPCS: 99222-AI; 99231-AI; 99232-AI; 99233-AI; 99239; J1100; J1650; J2060; J2920; J7030